=== PATIENT | male | born 1965 | race Caucasian/White ===

== ENCOUNTER 2017-07-27 13:36 | Observation (INO) | payer BC ==
[~2017-07-27] VITALS: Ht 182.9 cm; Wt 106.8 kg
--- NOTE | ~2017-07-27 | DS ---
PATIENT:JUANCHO FLOYD :61 MEDICAL RECORD: [id number] DISCHARGE SUMMARY ADMISSION DATE: 07/27/17 DISCHARGE DATE: 07/28/17 DATE OF SERVICE: 07/28/2017 DISCHARGE DIAGNOSES: 1. Unstable angina. 2. Coronary artery disease. 3. Percutaneous transluminal coronary angioplasty stent in left circumflex this admission. 4. Hypertension. 5. Hyperlipidemia. HOSPITAL COURSE: Mr. Floyd presents with anginal symptomatology, found to have significant disease of the left circumflex, underwent successful PTCA stent of the left circumflex, discharged home with the addition of Plavix to his medical regimen. He will follow up with [facility] in 1 month. TRANSINT:[id number] Voice Confirmation ID: [id number] DOCUMENT ID: [id number] ANIA REYES MD CC: [id number] DICTATION DATE: 07/28/17 1025 MEDIA PRODUCTION MANAGER: 07/29/17 0109 DIS IN 07/28/17 [facility] [address] [id number]
--- NOTE | ~2017-07-27 | OP ---
PATIENT NAME: JUANCHO LYMAN MEDICAL RECORD: [id number] :61 LOCATION:D.M2 D.2123 ADMISSION DATE:07/27/17 SURGEON: ANIA REYES MD DATE OF OPERATION: 07/28/2017 PROCEDURES: 1. PTCA stent to left circumflex. 2. Selective coronary angiography. 3. Left ventriculogram. 4. Left heart catheterization. INDICATION: Unstable angina. PROCEDURE IN DETAIL: After informed consent was obtained and after detailed explanation of risks, benefits as well as alternative therapies, the patient elected to proceed with angiogram and angioplasty. The right femoral area was prepped and draped in normal sterile fashion. The right femoral artery was cannulated via modified Seldinger technique with placement of 6-[place] sheath. All catheters exchanged through this sheath. FINDINGS: The left ventriculogram was performed in standard 30-degree AFIRCHILD view reveals global hypokinesis throughout all segments. Overall ejection fraction 40%. SELECTIVE CORONARY ANGIOGRAPHY: 1. Left main showed no significant angiographic disease. 2. Left anterior descending has mild irregularities, but no flow-limiting stenosis. 3. The left circumflex has previously placed stent, there is in-stent restenosis, but also an 80+ percent stenosis proximal to the previously placed stent. 4. The right coronary has previously placed stents. There is minimal in-stent restenosis with no flow limiting area of stenosis. PTCA STENT OF THE LEFT CIRCUMFLEX: The stent used was a 2.5 x 38 mm [place]. Result was 0% residual stenosis. OVERALL IMPRESSION: Successful percutaneous transluminal coronary angioplasty stent of the left circumflex going from 80+ percent initial stenosis to 0% residual stenosis. TRANSINT:[id number] Voice Confirmation ID: [id number] DOCUMENT ID: [id number] ANIA REYES MD CC: [id number] DICTATION DATE: 07/28/17 1025 RICE DRIER: 07/28/17 1120 ADM IN [id number] [place] [address]
--- NOTE | ~2017-07-27 | HEMODYNAMI ---
PATIENT:JUANCHO LYMAN MEDICAL RECORD: [id number] : 61 LOCATION:[facility].2123 ADMISSION DATE: 07/27/17 Generatedon:07/28/201710:26 Patient name: JUANCHO LYMAN Patient #: [id number] SSN: : Date of study: 07/28/2017 Page: Of Hemodynamic Procedure Report Patient Data Patient Demographics Procedure consent was obtained First Name: JUANCHO Gender: Male Last Name: ESMER : 1965 Patient #: [id number] Age: 51 year(s) Race: Unknown Additional ID: [id number] Contact details [address]: [address] [place] [address] State: [place] City: [place] Zip code: [address] Admission Admission Data Admission Date: 07/27/2017 Admission Time: 15:40 Room #: D.2123 Procedure Procedure Types Cath Procedure Diagnostic Procedure [facility] w/Coronaries PCI Procedure Coronary Stent Initial Miscellaneous Procedures Moderate Sedation up to 30 minutes Procedure Description Procedure Date Procedure Date: 07/28/2017 Procedure Start Time: 10:03 Procedure End Time: 10:26 Procedure Staff Name Function Lavelle Balderas MD Performing Physician Micah Segura RN Nurse Sami Mcclendon RT Monitor Dewey Cowan RT Scrub Janie Vidal RT Scrub Zeke Rutherford RN Pharmacology Associate Procedure Data Cath Procedure Fluoroscopy Diagnostic fluoroscopy Total fluoroscopy Time: 3.7 time: 3.7 min min Diagnostic fluoroscopy Total fluoroscopy dose: dose: 1222 mGy 1222 mGy Contrast Material Contrast Material Type Amount (ml) Isovue 300 111 Entry Location Entry Primary Successful Side Size Upsize Upsize Entry Closure Succes sful Closure Location (Fr) 1 (Fr) 2 (Fr) Remarks Device Remarks Femoral Right 5 Fr 6 Fr Exoseal artery Short Estimated blood loss: 10 ml Diagnostic catheters Device Type Used For End Catheter Placement Cordis 5Fr Pigtail Procedure Catheter (MP) Cordis 5Fr JL 4.0 Procedure Catheter (MP) Cordis 5Fr 3DRC Catheter Procedure (MP) Diagnostic Infinity 5Fr Procedure JL 5 catheter Procedure Complications No complications Procedure Medications Medication Administration Route Dosage 0.9% NaCl I.V. 100 ml/hr Oxygen NC 2 l/min Heparin Flush Bag added to field 2 bags (1000units/500ml NS) Lidocaine 2% added to field 20 Versed I.V. 1 mg Fentanyl I.V. 50 mcg Versed I.V. 1 mg Fentanyl I.V. 50 mcg Heparin Bolus I.V. 4000 units Hemodynamics Rest Heart Rate: 72 (bpm) Snapshots Pre Cath Intra NCS Post Cath Vital Signs Time Heart Resp SPO2 etCO2 RF2yqwe NIBP (mmHg) Rhythm Pain Sedation Rate (ipm) (%) (mmHg) (mmHg) Status Level (bpm) 9:55:37 73 24 95 0 0 138/94(121) NSR 0 (11) 10(A) , No pain 10:00:15 68 21 95 0 0 141/92(110) NSR 0 (11) 10(A) , No pain 10:04:50 82 16 97 0 0 127/84(109) NSR 0 (11) 10(A) , No pain 10:09:24 82 18 93 0 0 140/99(120) NSR 0 (11) 9(A) , No pain 10:14:01 91 17 95 0 0 137/88(118) NSR 0 (11) 10(A) , No pain 10:18:33 90 15 97 0 0 132/97(114) NSR 0 (11) 10(A) , No pain 10:23:10 78 18 96 0 0 146/98(116) NSR 0 (11) 10(A) , No pain Medications Time Medication Route Dose Verified Delivered Reason Notes Effectiveness by by 9:52:06 0.9% NaCl I.V. 100 Micah Micah Per physician ml/hr Imelda Segura RN RN 9:52:19 Oxygen NC 2 Micah Micah Per physician l/min Imelda Segura RN RN 9:52:33 Heparin Flush added 2 Micah Micah used for Bag to bags Imelda Segura procedure (1000units/500ml field JOSE RN NS) 9:52:58 Lidocaine 2% added 20ml Micah Micah for local to vial Imelda Segura anesthetic field GARCIA RN 9:59:39 Versed I.V. 1 mg Micah Micah for sedation Imelda Segura RN RN 9:59:50 Fentanyl I.V. 50 Micah Micah for sedation mcg Imelda Segura RN RN 10:06:14 Versed I.V. 1 mg Micah Micah for sedation Imelda Segura RN RN 10:06:25 Fentanyl I.V. 50 Micah Micah for sedation mcg Imelda Segura RN RN 10:14:56 Heparin Bolus I.V. 4000 Micah Micah for units Imelda Segura anticoagulation RN operational risk analyst Log Time Note 9:40:06 Zeke Rutherford RN sent for patient. Start room use. 9:47:17 Time tracking: Regular hours 9:47:23 Plan of Care:Hemodynamics will remain stable., Cardiac rhythm will remain stable., Comfort level will be maintained., Respiratory function will remain adequate., Patient/ family verbilizes understanding of procedure., Procedure tolerated without complication., Recovers from procedure without complications.. 9:47:30 Patient received from PCU to CCL 1 Alert and oriented. Tansferred to table in Supine position. 9:47:32 Warm blankets applied, and sj hugger turned on for patient comfort. 9:47:32 Correct patient and procedure confirmed by team. 9:47:33 Signed procedure consent form obtained from patient. 9:47:34 ECG and BP/O2 sat monitors applied to patient. 9:52:06 0.9% NaCl 100 ml/hr I.V. was administered by Micah Segura RN; Per physician; 9:52:19 Oxygen 2 l/min NC was administered by Micah Segura RN; Per physician; 9:52:33 Heparin Flush Bag (1000units/500ml NS) 2 bags added to field was administered by Micah Segura RN; used for procedure; 9:52:58 Lidocaine 2% 20ml vial added to field was administered by Micah Segura RN; for local anesthetic; 9:54:49 Vital chart was started 9:56:01 Baseline sample Acquired. 9:56:05 Rhythm: sinus rhythm 9:56:07 Full Disclosure recording started 9:56:19 H&P Date Dictated: 07/27/2017 Within 30 days and on chart.. 9:56:20 Pre-procedure instructions explained to patient. 9:56:21 Pre-op teaching completed and patient verbalized understanding. 9:56:22 Family in patients room. 9:56:24 Patient NPO since Midnight. 9:56:34 Is the patient allergic to Iodine/contrast media? No. 9:56:35 Is patient on blood thinner?Yes 9:56:37 ACC The patient was administered the following blood thiners within the last 24 hours: ACCPlavix 9:56:39 Patient diabetic? No. 9:56:43 Previous problem with sedation/anesthesia? No ? 9:56:43 Snore? Yes 9:56:45 Sleep apnea? No 9:56:46 Deviated septum? No 9:56:46 Opens mouth fully? Yes 9:56:47 Sticks out tongue? Yes 9:56:50 Airway obstruction? No ? 9:56:51 Dentures? No ? 9:57:00 Pre procedure: right dorsailis pedis pulse 1+ Palpable, but thready & weak; easily obliterated 9:58:02 No Radial due to tortuous aorta. 9:58:07 Patient pain scale 0/10 ?. 9:58:13 IV patent on arrival in left forearm with 0.9% NaCl at O. 9:58:16 Lab results completed and on chart. 9:58:26 Right groin area was prepped with chlora-prep and draped in sterile fashion 9:58:27 Alarms reviewed by R. N. 9:58:28 Sharps counted by scrub and verified by R.N. 9:58:29 --------ALL STOP TIME OUT------ 9:58:29 Final Timeout: patient, procedure, and site verified with staff and physician. All members of the team are in agreement. 9:58:32 Right groin site verified by team. 9:58:36 Physical assessment completed. ASA score P 2 - A patient with mild systemic disease as per Lavelle Balderas MD. 9:58:39 Sedation plan: IV Moderate Sedation Versed, Fentanyl 9:59:39 Versed 1 mg I.V. was administered by Micah Segura RN; for sedation; 9:59:50 Fentanyl 50 mcg I.V. was administered by Micah Segura RN; for sedation; 10:03:13 Procedure started. 10:03:18 Local anesthetic to right femoral artery with Lidocaine 2% by Lavelle Balderas MD.INITIAL ACCESS ONLY 10:03:36 Zero performed for pressure channel P1 10:05:45 Use device set Femoral Dx 10:05:46 Tegaderm 4 x 4 opened to sterile field. 10:05:47 Acist Hand Control opened to sterile field. 10:05:47 Acist Manifold opened to sterile field. 10:05:49 Acist Syringe opened to sterile field. 10:05:49 Bag Decanter opened to sterile field. 10:05:49 Medline Cath Pack opened to sterile field. 10:05:51 Terumo 5Fr [place] Sheath opened to sterile field. 10:05:51 St Gentry 260cm J .035 wire opened to sterile field. 10:05:52 Diagnostic Infinity 5Fr Multipack catheter opened to sterile field. 10:06:04 A 5 Fr sheath was inserted into the Right Femoral artery 10:06:08 A Cordis 5Fr Pigtail Catheter (MP) was advanced over the wire and used for Procedure. 10:06:14 Versed 1 mg I.V. was administered by Micah Segura RN; for sedation; 10:06:20 LV gram done using FAIRCHILD 10:06:22 Injector settings: Ml/sec: 10, Volume: 20, 10:06:25 Fentanyl 50 mcg I.V. was administered by Micah Segura RN; for sedation; 10:06:28 EF : 40 % 10:06:30 Catheter exchanged over wire. 10:06:35 A Cordis 5Fr JL 4.0 Catheter (MP) was advanced over the wire and used for Procedure. 10:07:41 Catheter removed. unable to cannulate vessel. 10:09:02 Catheter exchanged over wire. 10:09:06 A Cordis 5Fr 3DRC Catheter (MP) was advanced over the wire and used for Procedure. 10:09:16 RCA angiography performed. 10:09:25 Catheter removed. 10:09:30 Terumo 6Fr [place] Sheath opened to sterile field. 10:09:37 Merit BasixCompak Inflation Kit opened to sterile field. 10:10:41 A Diagnostic Infinity 5Fr JL 5 catheter was advanced over the wire and used for Procedure. 10:10:47 LCA angiography performed. 10:11:23 BlazeMeter Launcher 6Fr EBU 3.5 guide catheter opened to sterile field. 10:11:31 Catheter removed. 10:11:36 Sheath upsized to a 6 Fr Short. 10:12:58 6 Fr ebu 3.5 guide catheter was inserted over the wire 10:13:01 LCA angiography performed. 10:14:51 whisper wire advanced. 10:14:56 Heparin Bolus 4000 units I.V. was administered by Micah Segura RN; for anticoagulation; 10:15:49 Wire advanced across lesion. 10:16:18 Inflation Number: 1 A Talmage OTW 2.5 x 38 stent was prepped and advanced across the 1st Ob Melissa. The stent was deployed at 17 MELA for 0:10 (min:sec). 10:16:52 Stent catheter was removed intact over wire. 10:16:53 Wire removed. 10:16:53 Guide catheter removed. 10:16:58 Cordis 6Fr Exoseal opened to sterile field. 10:17:00 Sheath removed intact; hemostasis achieved with Exoseal to the Right Femoral artery. 10:17:17 Procedure ended.(Physican Out) 10:21:50 Fluoroscopy time 03.70 minutes. 10:21:55 Flurop Dose total: 1222 10:21:56 Fluoroscopy dose: 1222 mGy 10:21:59 Contrast amount:Isovue 300 111ml. 10:22:01 Sharps counted by scrub and verified by R.N. 10:22:03 Insertion/operative site no bleeding no hematoma. 10:22:07 Post-op/insertion site Right Femoral artery dressed using a 4 x 4 and Tegaderm. 10:22:10 Post right femoral artery:stable, soft, clean and dry 10:23:41 Post Procedure Pulses reassessed and unchanged 10:23:44 Post-procedure physical assessment completed. ASA score P 2 - A patient with mild systemic disease as per Lavelle Balderas MD. 10:23:46 Post procedure rhythm: unchanged. 10:23:49 Estimated blood loss: 10 ml 10:23:50 Post procedure instruction explained to patient.Patient verbalizes understanding. 10:23:50 Patient needs reinforcement of post procedure teaching. 10:24:05 Procedure type changed to Cath procedure, Diagnostic procedure, LHC, LHC w/Coronaries, PCI procedure, Coronary Stent Initial, Miscellaneous Procedures, Moderate Sedation up to 30 minutes 10:25:21 Johnson Faizanisper J 300cm 0.014 guide wire opened to sterile field. 10:25:50 Procedure and supply charges have been captured, reviewed, submitted and are correct. 10:25:52 Procedure Complication : No complications 10:25:54 Vital chart was stopped 10:25:54 See physician's report for complete and final results. 10:25:57 Report given to PCU. 10:25:59 Patient transfered to PCU with Stretcher. 10:26:01 Procedure ended. 10:26:01 Full Disclosure recording stopped 10:26:23 End room use (Document Last) Intervention Summary Intervention Notes Time ActionType Lesion and Equipment Action# Pressure Duration Attributes Used 10:16:18 Place stent 1st Ob Melissa Stephen OTW 1 17 00:10 2.5 x 38 stent Device Usage Item Name Manufacture Quantity Catalog Hospital Part Current Minimal Lot# / Number Charge Number Stock Stock Serial# Code Tegaderm 4 3M 1 [id number] 681081 019542 5 x 4 Acist Hand Acist 1 32686 897773 323983 803901 5 Control Medical Systems Inc Acist Acist 1 93858 511837 117623 038860 5 Manifold Medical Systems Inc Acist Acist 1 49258 023854 166945 158783 20 Syringe Medical Systems Inc Bag Microtek 1 2002S 724768 98671 317645 5 DecImpactGames Medical Inc. Medline Cardinal 1 [id number] 345730 51908 815876 5 Cath Pack Health Terumo 5Fr Terumo 1 [id number] 763349 855968 737024 [address] Gentry 1 199722 600354 449566 592731 30 260cm J .035 wire Diagnostic Cardinal 1 [id number] 076430 01871 684980 30 Obatech 5Fr Multipack catheter Cordis 5Fr Cardinal 1 845149 5 Pigtail Health Catheter (MP) Cordis 5Fr Cardinal 1 266195 5 JL 4.0 Health Catheter (MP) Cordis 5Fr Cardinal 1 327533 5 3DRC Health Catheter (MP) Terumo 6Fr Terumo 1 MEE418 631712 941114 452469 40 Riverside Sheath Merit Merit 1 [id number] 793923 049806 545618 15 [employer] Medical Inflation Kit Diagnostic Cardinal 1 [id number] 172479 033971 982116 5 Infinity Health 5Fr JL 5 catheter Medtronic Medtronic 1 [id number] 228223 68460 480444 3 Launcher 6Fr EBU 3.5 guide catheter Talmage OTW Medtronic 1 [id number] 766162 28728 221317 5 [id number] 2.5 x 38 stent Cordis 6Fr Cardinal 1 EX600 939873 322603 935955 10 [facility] Mobeon Johnson Johnson 1 [id number] 224608 853600 901580 5 [facility] J Vascular 300cm 0.014 guide wire Signature Audit [place] Stage Time Signature Unsigned Intra-Procedure 07/28/2017 Sami Mcclendon 10:26:44 AM RT(R) Signatures Monitor : Sami Mcclendon RT Signature : Date : Time : [id number] [place] [address]
[~2017-07-27 13:36] MED LIST: ACCUPRIL20 MG PO; ADVIL200 MG PO; ASPIRIN 81 MG E81 MG PO; LOPRESSOR25 MG PO; PEPCID20 MG PO; PLAVIX75 MG PO; PRAVACHOL40 MG PO
[2017-07-27 14:44] LABS: BASOPHILS 0.1 % (0-2); EOSINOPHILS 0.2 % (0-7); HEMOGLOBIN 16.6 g/dL (13.5-17.5); IMMATURE GRANULOCYTES 0.2 % (0-5); LYMPHOCYTES 15.1 % (15-50); MCH 32.2 pg (26.0-34.0); MCHC 35.3 g/dL (31.0-37.0); MCV 91.1 fL (80.0-100.0); MEAN PLATELET VOLUME 10.3 fL (7.4-10.4); MONOCYTES 5.8 % (2-11); NEUTROPHILS 78.6 % (40-80); PLATELET COUNT 205 10x3/uL (130-400); RBC 5.16 10x6/uL (4.20-6.10); RDW 12.7 % (11.5-14.5); WBC 12.7 10x3/uL (4.8-10.8)
[2017-07-27 14:58] LABS: ALKALINE PHOSPHATASE 76 U/L (46-116); ALT (SGPT) 33 U/L (10-68); BILIRUBIN - TOTAL 0.84 mg/dL (0.2-1.3); CALC OSMOLALITY 274 mosm/kg (275-300); CALCIUM 9.1 mg/dL (8.5-10.1); CARBON DIOXIDE 25.5 mmol/L (21.0-32.0); CHLORIDE - SERUM 103 mmol/L (98-107); CREATININE - SERUM 0.9 mg/dL (0.6-1.3); GLUCOSE 109 mg/dL (74-106); POTASSIUM - SERUM 4.3 mmol/L (3.5-5.1); PROTEIN - SERUM 7.3 g/dL (6.4-8.2); SODIUM 137 mmol/L (136-145); UREA NITROGEN 13 mg/dL (7-18); eGFR NON AFRICAN AMERICAN > 90 mL/min (90-120)
[2017-07-27 15:10] LABS: CKMB 0.9 U/L (0.0-3.6); CREATINE KINASE 85 UL (21-232); TROPONIN-I 0.028 ng/mL (0.000-0.060)
--- NOTE | 2017-07-27 17:39 | NUR ---
TRANSFER FROM ER BY W/C. ADINTED TO ROOM. CALL LIGHT IN REACH. WILL CONT. PLAN OF CARE.
[2017-07-27 17:51] VITALS: BP 158/81; Ht 182.9 cm; Wt 106.8 kg
[2017-07-27] MEDS ORDERED: CRESTOR20 MG PO (18:05)
--- NOTE | 2017-07-27 18:06 | NUR ---
RECIVED FROM ER PER WC TO ROOM 2123. ADMIT ASSESSMENT PER RN
--- NOTE | 2017-07-27 19:43 | NUR ---
PT RESTING IN BED. FAMILY AT BEDSIDE. NAME AND DATE ON WHITE BOARD. PT DENIES ANY NEEDS. NO S/S OF DISTRESS. WILL CPOC.
[2017-07-27 21:45] VITALS: BP 131/72
--- NOTE | 2017-07-28 08:11 | NUR ---
ASSESSMENT DONE. DENIES NEEDS.
[2017-07-28 08:16] VITALS: BP 138/83
--- NOTE | 2017-07-28 09:31 | NUR ---
RESTS IN BED WITH CALL LIGHT IN REACH. WILL MONITOR NEEDS.
--- NOTE | 2017-07-28 09:50 | NUR ---
TO RAILROAD DETECTIVE PER BED
--- NOTE | 2017-07-28 10:20 | HP ---
PATIENT: JUANCHO LYMAN MEDICAL RECORD: [id number] ACCOUNT: [id number] LOCATION:[address] : 61 ADMISSION DATE: 07/27/17 HISTORY AND PHYSICAL EXAMINATION ADMITTING DIAGNOSES: 1. Unstable angina. 2. Coronary artery disease. 3. Previous percutaneous transluminal coronary angioplasty with stent. 4. Hypertension. 5. Hyperlipidemia. HISTORY OF PRESENT ILLNESS: This is a gentleman with a past history of coronary artery disease, last cardiac intervention in 2012. He has been having 1 week of increasing episodes of chest pain and chest discomfort. He has taken multiple sublingual nitro, multiple doses of morphine today that relieved him with chest pain. His EKG is normal. It has been normal when he has had blockage in the past requiring transcatheter revascularization. REVIEW OF SYSTEMS: The patient reports easy bruising but reports no swollen glands. The patient reports no fever, no night sweats, no significant weight gain, no significant weight loss. No significant exercise tolerance. The patient reports no dry eyes, no irritation, no vision change. Patient reports no difficulty hearing and no ear pain. Patient reports no frequent nose bleeds or nose and sinus problems. Patient reports no arm pain on exertion. No shortness of breath while lying down. No history of heart murmur. Patient reports no cough, no wheezing or coughing up blood. Patient reports no abdominal pain, no vomiting. Normal appetite. No diarrhea and not vomiting blood. No nausea and no constipation. Patient reports no incontinence. No difficulty urinating. No hematuria. No increased frequency. Patient reports no muscle aches. No weakness, no arthralgias, no back pain. No swelling of the extremities. Patient reports no abnormal mole, no jaundice, no rashes. Reports no loss of consciousness. No weakness and no numbness. No seizures, dizziness, or headaches. The patient reports no depression, no sleep disturbance, feeling safe in a relationship and no alcohol abuse. Patient reports on fatigue. Reports no runny nose or sinus pressure. No itching, no hives, and no frequent sneezing. PHYSICAL EXAMINATION: GENERAL APPEARANCE: Well-nourished, well-developed, appears stated age. Level of distress, comfortable. PSYCHIATRIC: Mental status, alert, normal affect. Orientation, oriented to time, place and person. EYES: Lids and conjunctiva, noninjected. No discharge, no pallor. ENT: Lips, teeth, gums, normal dentition. Oropharynx, no cyanosis, no pallor. NECK: Carotid arteries, bilateral normal upstroke, no bruits, no thrills. JUGULAR VEINS: No jugular venous pressure or distention. CERVICAL LYMPH NODES: Nontender, nonenlarged. THYROID: Not enlarged. Nontender. No nodules. LUNGS: Respiratory effort, unlabored. CHEST: Normal curvature. No thoracic deformity. No chest wall tenderness. Percussion, resonant. Auscultation, clear. No wheezes, no rales, no rhonchi. CARDIOVASCULAR: Precordial exam, nondisplaced. No heaves or pericardial thrills. Rate and rhythm, regular. Heart sounds, normal S1, normal S2. No S3, no gallop, no rub. Systolic murmur, not heard. Diastolic murmur, not heard. HISTORY AND PHYSICAL [id number] JUANCHO LYMAN EXTREMITIES: No cyanosis, no edema. Peripheral pulses, full and equal in all extremities, except as noted. No bruits appreciated. ABDOMEN: Soft, nondistended. Normal aorta. No bruit. Nontender. No masses. Liver, nontender, no hepatomegaly. Spleen, nontender, no splenomegaly. MUSCULOSKELETAL: No joint tenderness. No joint swelling. No erythema. NEUROLOGICAL: Normal gait, normal strength, normal tone. SKIN: Warm and dry. OVERALL IMPRESSION: Chest pain compatible with angina in an unstable fashion. We will proceed with coronary angiography. Further care depends upon the findings of the angiography. TRANSINT:[id number] Voice Confirmation ID: [id number] DOCUMENT ID: [id number] ANIA REYES MD at 1020 CC: [id number] DICTATION DATE: 07/27/17 1524 TRAFFIC SIGN ERECTION SUPERVISOR: 07/27/17 1625 ADM IN [facility] [address] [place] [address]
--- NOTE | 2017-07-28 10:40 | NUR ---
RETURN FROM CATH PER BED. RT GROIN DRSG C/D/I, PULSE GOOD
[2017-07-28 11:58] VITALS: BP 152/79
[2017-07-28] MEDS ORDERED: PLAVIX75 MG PO (13:49)
--- NOTE | 2017-07-28 14:31 | NUR ---
DC AND RX GIVEN TO PT
--- NOTE | 2017-07-28 14:56 | NUR ---
DC HOME PER PERSONAL CAR
== END 2017-07-28 14:56 | disposition home or self-care (01) ==
LOC: D.ER 13:36 → D.M2 15:40 → OBSVTIME 15:40 → D.M2 15:40
PROVIDERS: Emergency Medicine; ADMIT Internal Medicine Interventional Cardiology
DX: I25.110 Atherosclerotic heart disease of native coronary artery with unstable angina pectoris (principal); Z95.5 Presence of coronary angioplasty implant and graft; I10 Essential (primary) hypertension; E78.5 Hyperlipidemia, unspecified